=== PATIENT | female | born 1980 | race Caucasian/White ===

== ENCOUNTER → 2018-07-12 | Emergency (ER) | payer MEDICARE ==
[~2018-07-12] VITALS: Ht 157.5 cm; Wt 105.7 kg
[~2018-07-12] MED LIST: ARIPIPRAZOLE20 MG PO; CAMRESE 0.15-01 EACH PO; LEVOTHYROXINE25 MCG PO; LITHIUM CARBON600 MG PO; METFORMIN HCL500 MG PO; PRAZOSIN HCL1 MG PO
--- NOTE | 2018-07-13 00:56 | EKG ---
[facility] [address] [facility] [place] [address] Signed Normal sinus rhythm Abnormal QRS-T angle, consider primary T wave abnormality Abnormal ECG No previous ECGs available Confirmed by LAURIE HAILE MD ([id number]) on 07/13/2018 12:55:53 AM Electronically Signed By: LAURIE HAILE MD 07/13/18 0056 PATIENT NAME: CEMERIN Electrocardiogram DATE OF : 76 PHYSICIAN: LAURIE HAILE MD REPORT #: [id number] REPORT IS CONFIDENTIAL AND NOT TO BE RELEASED WITHOUT AUTHORIZATION
== END ==
LOC: ED 12:11
DX: Z00.8 Encounter for other general examination (principal); Z79.899 Other long term (current) drug therapy; Z79.84 Long term (current) use of oral hypoglycemic drugs; F31.9 Bipolar disorder, unspecified
CPT/HCPCS: 36415; 80053; 80176; 80178; 81001; 84443; 84703; 85025; 93005; 93010; 99283-25; G0480

== ENCOUNTER 2019-06-25 10:38 | Emergency (ER) | payer OTHER ==
[~2019-06-25] VITALS: Ht 157.5 cm; Wt 105.7 kg
--- OUTSIDE RECORDS SUMMARY | ~2019-06-25 | XMS | Clinical Summary ---
Demographics + + + | Address | [address] | | | [place] [address] | + + + | Home Phone | | + + + | Preferred Language | Unknown | + + + | Marital Status | Single | + + + | Shinto Affiliation | 1013 | + + + | Race | Unknown | + + + | Ethnic Group | Unknown | + + + Author + + + | Author | [facility] (Historical as of | | | 02-17-19) | + + + | Organization | [facility] (Historical as of | | | 02-17-19) | + + + | Address | Unknown | + + + | Phone | Unavailable | + + + Support + + + + + | Name | Relationship | Address | Phone | + + + + + | Jan Hines | ECON | [address] | | | | | [place] | | | | | [place] | | | | | [address] | | + + + + + Care Team Providers + +------+ + | Care Ict Support And Test Engineers Name | Role | Phone | + +------+ + | Eleuterio Huitron MD | PP | | + +------+ + Allergies No Known Allergies Current Medications + + +-------+---------+------+------+-------+ | Prescription | Sig. | Disp. | Refills | Star | End | Statu | | | | | | t | Date | s | | | | | | Date | | | + + +-------+---------+------+------+-------+ | cloNIDine | Take 0.1 mg by mouth | | | | | Activ | | (CATAPRES) 0.1 MG | 2 (two) times | | | | | e | | tablet | daily. | | | | | | + + +-------+---------+------+------+-------+ | prazosin | Take 2 mg by mouth | | | | | Activ | | (MINIPRESS) 2 MG | nightly. | | | | | e | | capsule | | | | | | | + + +-------+---------+------+------+-------+ | buPROPion | Take 300 mg by mouth | | | | | Activ | | (WELLBUTRIN XL) 300 | every morning. | | | | | e | | MG 24 hr tablet | | | | | | | + + +-------+---------+------+------+-------+ | topiramate | Take 50 mg by mouth | | | | | Activ | | (TOPAMAX) 50 MG | 2 (two) times daily. | | | | | e | | tablet | | | | | | | + + +-------+---------+------+------+-------+ | gabapentin | Take 300 mg by mouth | | | | | Activ | | (NEURONTIN) 300 MG | 3 (three) times | | | | | e | | capsuleIndications: | daily. Indications: | | | | | | | Aggressive Behavior, | Aggressive Behavior, | | | | | | | Agitation | Agitation | | | | | | + + +-------+---------+------+------+-------+ | | Take 15 mg by mouth | | | | | Activ | | amphetamine-dextroam | every morning. | | | | | e | | phetamine (ADDERALL | | | | | | | | XR) 15 MG 24 hr | | | | | | | | capsule | | | | | | | + + +-------+---------+------+------+-------+ Active Problems Not on file Social History + +-------+ +--------+------+ | Tobacco Use | Types | Packs/Day | Years | Date | | | | | Used | | + +-------+ +--------+------+ | Never Assessed | | | | | + +-------+ +--------+------+ + + + | Sex Assigned at | Date Recorded | | | | + + + | Not on file | | + + + Last Filed Vital Signs + + + + | Vital Sign | Reading | Time Taken | + + + + | Blood Pressure | 105/60 | 10/08/2015 10:04 PM PDT | + + + + | Pulse | 70 | 10/08/2015 10:04 PM PDT | + + + + | Temperature | 36.8 C (98.2 F) | 10/08/2015 5:21 PM PDT | + + + + | Respiratory Rate | 16 | 10/08/2015 10:04 PM PDT | + + + + | Oxygen Saturation | 98% | 10/08/2015 10:04 PM PDT | + + + + | Inhaled Oxygen | - | - | | Concentration | | | + + + + | Weight | 93.4 kg (205 lb 14.6 | 10/08/2015 5:21 PM PDT | | | oz) | | + + + + | Height | - | - | + + + + | Body Mass Index | - | - | + + + + Plan of Treatment Not on file Results Not on filefrom Last 3 Months Insurance + +--------+ +------+-------+---------+ | Payer | Benefi | Subscriber | Type | Phone | Address | | | t Plan | ID | | | | | | / | | | | | | | Group | | | | | + +--------+ +------+-------+---------+ | [employer] | [employer]DS | [id number] | | | | | | HEALTH | | | | | | | PLAN | | | | | + +--------+ +------+-------+---------+ + +--------+ +--------+ + + | Guarantor Name | Accoun | Relation to | Date | Phone | Billing Address | | | t Type | Patient | of | | | | | | | | | | + +--------+ +--------+ + + | ERIN PRIEST | Person | Self [birth year] Home: | [address] | | | al/Fam | | 1979 | [phone] | [place] | | | [place] | | | [phone] | [phone] | + +--------+ +--------+ + +"
--- OUTSIDE RECORDS SUMMARY | ~2019-06-25 | XMS | Clinical Summary ---
Demographics + + + | Address | [address] | | | [place] [address] | + + + | Home Phone | | + + + | Preferred Language | Unknown | + + + | Marital Status | Single | + + + | Hinduism Affiliation | 1013 | + + + | Race | Unknown | + + + | Ethnic Group | Unknown | + + + Author + + + | Author | [facility] (Historical as of | | | 02-17-19) | + + + | Organization | [facility] (Historical as of | | | 02-17-19) [...] [place] | | | | | [id number] | | + + + + + Care Team Providers + +------+ + | Care Lens Matcher Name | Role | Phone | + [...] | [employer] | ODS | [id number] | | | | | | HEALTH [...] | [birth year] | Home: | [address] | | | al/Fam | | 1979 | [phone] | [place] | | | [place] | | | [phone] | [phone] | + +--------+ +--------+ + +"
--- OUTSIDE RECORDS SUMMARY | 2019-06-25 10:40 | XMS ---
PreManage Notification: ERIN PRIEST Security Airline Hostess Events No recent Security Events currently on file [facility] There are no care providers on record at this time. [facility] has no Care Guidelines for this patient. Lisa VISIT COUNT (12 MO.) 2 CO[facility] TOTAL 2 NOTE: Visits indicate total known visits. 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
--- NOTE | 2019-06-26 07:14 | EKG ---
[facility] [address] [facility] [place] [address] Signed Normal sinus rhythm Normal ECG When compared with ECG of 12-JUL-2018 16:12, T wave inversion no longer evident in Inferior leads Confirmed by SHANICE RICHARDSON MD ([id number]) on 06/26/2019 7:14:46 AM Electronically Signed By: SHANICE RICHARDSON MD 06/26/19 0714 PATIENT NAME: PRIESTERIN Davis Electrocardiogram DATE OF : 76 PHYSICIAN: SHANICE RICHARDSON MD REPORT #: [id number] REPORT IS CONFIDENTIAL AND NOT TO BE RELEASED WITHOUT AUTHORIZATION
== END 2019-06-25 23:40 | disposition home or self-care (01) ==
LOC: ED 10:38
DX: T42.4X2A Poisoning by benzodiazepines, intentional self-harm, initial encounter (principal); F31.9 Bipolar disorder, unspecified; F17.200 Nicotine dependence, unspecified, uncomplicated; Z79.899 Other long term (current) drug therapy
CPT/HCPCS: 80053; 80176; 81001; 84443; 84703; 85025; 93005; 93010; 96360; 96361; 99284-25; G0480; J7030

== ENCOUNTER 2020-07-28 12:19 | Emergency (ER) | payer OTHER ==
[~2020-07-28] VITALS: Ht 157.5 cm; Wt 113.4 kg
--- OUTSIDE RECORDS SUMMARY | 2020-07-28 12:22 | XMS ---
PreManage Notification: ERIN PRIEST Security Custodial Services Manager Events No recent Security Events currently on file CRITERIA MET - [facility] - Has Care Guidelines CARE PROVIDERS JOEL HOOVER Nurse Practitioner: Family 06/26/2019-Current PHONE: [phone] Guidelines Source: [facility] Guidelines Date: 06/29/2019 Care Coordination: Mental health services are being provided by [facility].\T\nbsp; Please contact [facility] with mental health concerns.\T\nbsp; [place]: \T\nbsp; [place]: [phone]. Care History Medical/Surgical 06/26/2019 [facility] - Patient is currently established with [facility]. If patient is seen in the ED during business hours. Please contact CHWs at [facility]. Care Recommendation: If this patient has had 5 or more Emergency Department visits in the last 12 months.\T\nbsp; Patient will require education on the scope and purpose of the ED as an acute care provider not a Primary Care Provider and should not be utilized for chronic conditions.\T\nbsp; These are guidelines and the provider should exercise clinical judgment when providing care. 06/26/2019 [facility] Patient has appt. scheduled at [facility] on 07/06/2019. E.D. VISIT COUNT (12 MO.) 1 [facility] Hunt TOTAL 1 NOTE: Visits indicate total known visits. ED/UCC VISIT TRACKING (12 MO.) 07/28/2020 12:20 [facility] [place] TYPE: Emergency COMPLAINT: - MED CLEARANCE INPATIENT VISIT TRACKING (12 MO.) No inpatient visits to display in this time frame [id number]
[2020-07-28] MEDS ORDERED: OXCARBAZEPINE600 MG PO (13:00)
[2020-07-28] MEDS ORDERED: LEVOTHYROXINE25 MC1 PO (13:00)
[2020-07-28] MEDS ORDERED: GLUCOPHAGE500 MG PO (13:01)
[2020-07-28] MEDS ORDERED: KLONOPIN1 MG PO (13:01)
[2020-07-28] MEDS ORDERED: SIMVASTATIN10 MG (13:02)
--- NOTE | 2020-07-29 12:08 | EKG ---
[facility] [address] [place], [place] [address] Signed Normal sinus rhythm Normal ECG When compared with ECG of 25-JUN-2019 11:16, No significant change was found Confirmed by LAURIE HAILE MD ([id number]) on 07/29/2020 12:07:47 PM Electronically Signed By: LAURIE HAILE MD 07/29/20 1208 PATIENT NAME: CEMERIN Electrocardiogram DATE OF : 76 PHYSICIAN: LAURIE HAILE MD REPORT #: [id number] REPORT IS CONFIDENTIAL AND NOT TO BE RELEASED WITHOUT AUTHORIZATION
== END 2020-07-28 19:59 | disposition home or self-care (01) ==
LOC: ED 12:19
DX: F31.9 Bipolar disorder, unspecified (principal); R45.851 Suicidal ideations; R73.03 Prediabetes; Z79.899 Other long term (current) drug therapy; Z79.84 Long term (current) use of oral hypoglycemic drugs
CPT/HCPCS: 80053; 80176; 81001; 84443; 84703; 85025; 93005; 93010; 99285-25; C9803; U0003

== ENCOUNTER 2021-05-25 15:17 | Emergency (ER) | payer MEDICARE ==
[~2021-05-25] VITALS: Ht 157.5 cm; Wt 117.9 kg
[~2021-05-25 15:17] MED LIST changes: +GLUCOPHAGE500 MG PO; +KLONOPIN1 MG PO; +LEVOTHYROXINE25 MC1 PO; +OXCARBAZEPINE600 MG PO; +SIMVASTATIN10 MG
--- NOTE | 2021-05-26 13:37 | EKG ---
[facility] [address] [facility] [place] [address] Signed Normal sinus rhythm Normal ECG When compared with ECG of 28-JUL-2020 16:06, No significant change was found Confirmed by LAURIE HAILE MD ([id number]) on 05/26/2021 1:37:10 PM Electronically Signed By: LAURIE HAILE MD 05/26/21 1337 PATIENT NAME: PRIESTERIN Davis Electrocardiogram DATE OF : [birth year] PHYSICIAN: LAURIE HAILE MD REPORT #: [id number] REPORT IS CONFIDENTIAL AND NOT TO BE RELEASED WITHOUT AUTHORIZATION
== END 2021-05-26 12:19 ==
LOC: ED 15:17
DX: E87.6 Hypokalemia (principal); Z20.822 Contact with and (suspected) exposure to COVID-19; E03.9 Hypothyroidism, unspecified; Z79.899 Other long term (current) drug therapy; Z79.84 Long term (current) use of oral hypoglycemic drugs
CPT/HCPCS: 80053; 81001; 84443; 84703; 85025; 93005; 93010; 99285-25; C9803; G0480; U0003

== ENCOUNTER 2022-02-15 13:15 | Emergency (ER) | payer MEDICARE ==
[~2022-02-15] VITALS: Ht 157.5 cm; Wt 110.1 kg
[2022-02-15] MEDS ORDERED: LAMOTRIGINE200 MG PO (13:51)
[2022-02-15] MEDS ORDERED: PRILOSEC OTC20 MG PO (15:38)
--- NOTE | 2022-02-16 07:29 | EKG ---
[facility] [address] [facility] [place], [place] [address] Signed Normal sinus rhythm Normal ECG Confirmed by SHANICE RICHARDSON MD ([id number]) on 02/16/2022 7:29:33 AM Electronically Signed By: SHANICE RICHARDSON MD 02/16/22 0729 PATIENT NAME: ERIN PRIEST Electrocardiogram DATE OF : [birth year] PHYSICIAN: SHANICE RICHARDSON MD REPORT #: [id number] REPORT IS CONFIDENTIAL AND NOT TO BE RELEASED WITHOUT AUTHORIZATION
== END 2022-02-15 15:45 | disposition home or self-care (01) ==
LOC: ED 13:15
DX: R07.9 Chest pain, unspecified (principal); E03.9 Hypothyroidism, unspecified; E78.5 Hyperlipidemia, unspecified; Z79.899 Other long term (current) drug therapy; Z79.84 Long term (current) use of oral hypoglycemic drugs
CPT/HCPCS: 36415; 71045; 80053; 83735; 84484; 85025; 85379; 93005; 93010; 99285-25; A9270

== ENCOUNTER → 2022-04-27 | Emergency (ER) | payer OTHER, MEDICARE, MEDICAID ==
[~2022-04-27] VITALS: Ht 157.5 cm; Wt 110.0 kg
[~2022-04-27] MED LIST changes: +CYMBALTA20 MG PO; +LAMOTRIGINE200 MG PO; +PRILOSEC OTC20 MG PO
--- NOTE | 2022-04-28 17:53 | EKG ---
[facility] [address] [place], [place] [address] Signed Normal sinus rhythm Normal ECG When compared with ECG of 15-FEB-2022 13:15, No significant change was found Confirmed by SHANICE RICHARDSON MD ([id number]) on 04/28/2022 5:53:30 PM Electronically Signed By: SHANICE RICHARDSON MD 04/28/22 175 PATIENT NAME: ERIN PRIEST Electrocardiogram DATE OF : [birth year] PHYSICIAN: SHANICE RICHARDSON MD REPORT #: [id number] REPORT IS CONFIDENTIAL AND NOT TO BE RELEASED WITHOUT AUTHORIZATION
== END ==
LOC: ED 19:52
DX: R45.851 Suicidal ideations (principal); E78.5 Hyperlipidemia, unspecified; Z79.890 Hormone replacement therapy; Z79.899 Other long term (current) drug therapy; Z20.822 Contact with and (suspected) exposure to COVID-19
CPT/HCPCS: 36415; 80053; 81001; 84443; 85025; 87502; C9803; G0480; U0003

== ENCOUNTER 2022-11-29 09:37 | Emergency (ER) | payer OTHER, MEDICARE, MEDICAID ==
[~2022-11-29] VITALS: Ht 157.5 cm; Wt 118.4 kg
[2022-11-29] MEDS ORDERED: TRIAMCINOLONE A15 G3 TOP (10:38)
[2022-11-29 10:50] VITALS: BP 150/84
== END 2022-11-29 10:50 | disposition home or self-care (01) ==
LOC: ED 09:37
DX: K12.0 Recurrent oral aphthae (principal); E11.9 Type 2 diabetes mellitus without complications; Z79.899 Other long term (current) drug therapy; Z79.890 Hormone replacement therapy; Z79.84 Long term (current) use of oral hypoglycemic drugs
CPT/HCPCS: 99282

== ENCOUNTER 2023-08-05 12:50 | Emergency (ER) | payer OTHER, MEDICARE ==
[~2023-08-05] VITALS: Ht 157.5 cm; Wt 108.5 kg
[~2023-08-05 12:50] MED LIST changes: +TRIAMCINOLONE A15 G3 TOP
[2023-08-05 14:09] VITALS: BP 14/78
== END 2023-08-05 14:10 | disposition home or self-care (01) ==
LOC: ED 12:50
DX: S61.012A Laceration without foreign body of left thumb without damage to nail, initial encounter (principal); F31.9 Bipolar disorder, unspecified; E78.5 Hyperlipidemia, unspecified; F43.10 Post-traumatic stress disorder, unspecified; E03.9 Hypothyroidism, unspecified; E28.2 Polycystic ovarian syndrome; W26.0XXA Contact with knife, initial encounter; Y93.G1 Activity, food preparation and clean up; Z79.84 Long term (current) use of oral hypoglycemic drugs; Z79.890 Hormone replacement therapy; Z79.899 Other long term (current) drug therapy
CPT/HCPCS: 99282

== ENCOUNTER 2023-10-28 02:11 | Emergency (ER) | payer OTHER, MEDICARE ==
[~2023-10-28] VITALS: Ht 157.5 cm; Wt 89.0 kg
[~2023-10-28 02:11] MED LIST changes: +CEFDINIR300 MG PO; +DIFLUCAN200 MG PO; +VALACYCLOVIR1000 MG PO
[2023-10-28] MEDS ORDERED: FLUTICASONE PROPIONATE 50 MCG BTL NAS ONE (02:30)
[2023-10-28 03:11] LABS: INFLUENZA B NAA NEGATIVE (NEGATIVE); RESPIRATORY SYNCYTIAL VIR NAA NEGATIVE (NEGATIVE)
[2023-10-28 03:30] VITALS: BP 138/85
== END 2023-10-28 03:32 | disposition home or self-care (01) ==
LOC: ED 02:11
PROVIDERS: Internal Medicine
DX: H68.011 Acute Eustachian salpingitis, right ear (principal); J02.8 Acute pharyngitis due to other specified organisms; E03.9 Hypothyroidism, unspecified; Z91.040 Latex allergy status; Z91.09 Other allergy status, other than to drugs and biological substances; Z79.84 Long term (current) use of oral hypoglycemic drugs; Z79.890 Hormone replacement therapy; Z79.899 Other long term (current) drug therapy; Z11.52 Encounter for screening for COVID-19
CPT/HCPCS: 87502; 87651; 99283; U0002

== ENCOUNTER 2023-11-30 11:38 | Emergency (ER) | payer OTHER, MEDICARE ==
[~2023-11-30] VITALS: Ht 157.5 cm; Wt 99.0 kg
[2023-11-30 12:44] LABS: BASOPHILS 0.7 % (0-2); HEMATOCRIT 37.2 % (35.0-50.0); HEMOGLOBIN 11.9 g/dL (12.0-18.0); LYMPHOCYTES 26.8 % (24-44); MCH 24.1 (27-36); MCV 75.2 fl (81-99); MONOCYTES 5.9 % (0-12); NEUTROPHILS 64.6 % (39-80); PLATELET COUNT 374 K/uL (140-440); RBC 4.95 M/ul (4.3-5.7)
[2023-11-30 13:00] LABS: ALBUMIN 3.2 g/dL (3.4-5.0); ALBUMIN/GLOBULIN RATIO 0.73 (1.1-2.4); ANION GAP 14.9 (7-21); BILIRUBIN, TOTAL 0.3 ng/dL (0.2-1.0); BUN/CREATININE RATIO 12.94 (6.0-28.6); CALCIUM 8.5 mg/dL (8.5-10.1); CREATININE, SERUM 0.85 mg/dL (0.55-1.02); POTASSIUM 3.9 mmol/L (3.5-5.1); PROTEIN, TOTAL 7.6 g/dL (6.4-8.2)
[2023-11-30 13:44] LABS: BILIRUBIN, URINE NEGATIVE (negative); BLOOD/HGB, URINE TRACE-L (Negative); KETONE, URINE NEGATIVE (Negative); LEUK ESTERASE, URINE NEGATIVE (negative); NITRITE, URINE NEGATIVE (negative); PH, URINE 5.5 (5-7)
[2023-11-30 13:56] LABS: EPITHELIAL CELLS, URINE SQUAMOUS 1+ /lpf (0-1+); RED BLOOD CELLS, URINE 0-1 /hpf (0-5); REFLEX CULTURE, URINE No (No)
[2023-11-30 13:57] LABS: CASTS, URINE HYALINE 1+ \\lpf
[2023-11-30 17:26] VITALS: BP 118/80
== END 2023-11-30 17:26 | disposition home or self-care (01) ==
LOC: ED 11:38
PROVIDERS: Emergency Medicine
DX: R10.32 Left lower quadrant pain (principal); R11.2 Nausea with vomiting, unspecified; F31.9 Bipolar disorder, unspecified; E28.2 Polycystic ovarian syndrome; E78.5 Hyperlipidemia, unspecified; F43.10 Post-traumatic stress disorder, unspecified; E03.9 Hypothyroidism, unspecified; Z91.048 Other nonmedicinal substance allergy status; Z91.040 Latex allergy status; Z79.890 Hormone replacement therapy; Z79.84 Long term (current) use of oral hypoglycemic drugs; Z79.899 Other long term (current) drug therapy
CPT/HCPCS: 36415; 74177; 80053; 81001; 83690; 84703; 85025; 99284-25; Q9967

== ENCOUNTER 2024-04-29 12:27 | Emergency (ER) | payer OTHER ==
[~2024-04-29] VITALS: Ht 157.5 cm; Wt 97.7 kg
[2024-04-29] MEDS ORDERED: TETRACAINE HCL 0.5% 4 ML BTL OS ONE (14:45)
[2024-04-29] MEDS ORDERED: FLUORESCEIN SOD 1 EA STRP OS ONE (14:45)
[2024-04-29] MEDS ORDERED: ERYTHROMYCIN1 GM OP (15:35)
[2024-04-29] MEDS ORDERED: DIPHTH,PERTUSS(ACELL),TET VAC 0.5 ML SYRINGE IM ONE (15:45)
[2024-04-29 15:51] VITALS: BP 129/78
== END 2024-04-29 15:52 | disposition home or self-care (01) ==
LOC: ED 12:27
DX: S05.02XA Injury of conjunctiva and corneal abrasion without foreign body, left eye, initial encounter (principal); R73.03 Prediabetes; E78.5 Hyperlipidemia, unspecified; E03.9 Hypothyroidism, unspecified; E28.2 Polycystic ovarian syndrome; Z91.048 Other nonmedicinal substance allergy status; Z91.040 Latex allergy status; Z79.84 Long term (current) use of oral hypoglycemic drugs; Z79.890 Hormone replacement therapy; Z79.899 Other long term (current) drug therapy; W44.8XXA Other foreign body entering into or through a natural orifice, initial encounter
CPT/HCPCS: 90471; 90715; 99283-25

== ENCOUNTER 2024-06-07 01:27 | Emergency (ER) | payer MEDICARE, OTHER ==
[~2024-06-07] VITALS: Ht 157.5 cm; Wt 115.0 kg
[~2024-06-07 01:27] MED LIST changes: +ERYTHROMYCIN1 GM OP
[2024-06-07] MEDS ORDERED: LORazepam 2 MG/ML VIAL IM ONE (01:30)
[2024-06-07] MEDS ORDERED: diphenhydrAMINE HCL 50 MG/ML VIAL IM ONE (01:30)
[2024-06-07] MEDS ORDERED: HALOPERIDOL LACTATE 5 MG/ML VIAL IM ONE (01:30)
[2024-06-07 02:36] LABS: BASOPHILS 0.5 % (0-2); EOSINOPHILS 1.1 % (0-6); HEMATOCRIT 32.3 % (35.0-50.0); HEMOGLOBIN 10.7 g/dL (12.0-18.0); LYMPHOCYTES 17.2 % (24-44); MCH 24.7 (27-36); MCHC 33.2 g/dl (30-36); MCV 74.3 fl (81-99); MONOCYTES 6.5 % (0-12); NEUTROPHILS 74.7 % (39-80); PLATELET COUNT 328 K/uL (140-440); RBC 4.35 M/ul (4.3-5.7); RDW 15.1 (10.5-15.0)
[2024-06-07 03:03] LABS: ACETAMINOPHEN 0 ug/mL (10-30); ALBUMIN 3.4 g/dL (3.4-5.0); ALBUMIN/GLOBULIN RATIO 0.87 (1.1-2.4); ALCOHOL, MEDICAL <3 ng/dL (<3); ALKALINE PHOSPHATASE 90 U/L (46-116); ALT (SGPT) 10 U/L (14-59); ANION GAP 14.1 (7-21); AST (SGOT) 23 U/L (15-37); BILIRUBIN, TOTAL 0.5 ng/dL (0.2-1.0); CALCIUM 8.5 mg/dL (8.5-10.1); CARBON DIOXIDE 25 mmol/L (21-32); CHLORIDE 104 mmol/L (98-107); GLOMERULAR FILTRATION RATE,EST 92 mL/min (>60); POTASSIUM 3.1 mmol/L (3.5-5.1); PROTEIN, TOTAL 7.3 g/dL (6.4-8.2); SALICYLATE 0.6 mg/dL (2.8-20.0); TSH, 3RD GENERATION 1.654 uIU/mL (0.358-3.740); UREA NITROGEN 12 mg/dL (7-18)
[2024-06-07 03:06] LABS: BILIRUBIN, URINE NEGATIVE (negative); BLOOD/HGB, URINE NEGATIVE (Negative); KETONE, URINE NEGATIVE (Negative); LEUK ESTERASE, URINE NEGATIVE (negative); NITRITE, URINE NEGATIVE (negative); PH, URINE 5.5 (5-7)
[2024-06-07 03:21] LABS: AMPHETAMINES, URINE NEGATIVE (NEGATIVE); BARBITURATES, URINE NEGATIVE (NEGATIVE); BENZODIAZEPINE, URINE NEGATIVE (NEGATIVE); BUPRENORPHINE, URINE NEGATIVE (NEGATIVE); CANNABINOID, URINE POSITIVE (NEGATIVE); COCAINE, URINE NEGATIVE (NEGATIVE); ECSTASY, URINE NEGATIVE (NEGATIVE); FENTANYL, URINE NEGATIVE (NEGATIVE); METHADONE, URINE NEGATIVE (NEGATIVE); OPIATES, URINE NEGATIVE (NEGATIVE); OXYCODONE, URINE NEGATIVE (NEGATIVE); PHENCYCLIDINE, URINE NEGATIVE (NEGATIVE)
[2024-06-07] MEDS ORDERED: OLANZapine 10 MG TABDIS PO ONE (14:15)
[2024-06-07] MEDS ORDERED: LORazepam 1 MG TAB PO ONE (17:45)
[2024-06-08] MEDS ORDERED: LORazepam 1 MG TAB PO ONE (11:30)
[2024-06-08] MEDS ORDERED: OLANZapine 10 MG TABDIS PO ONE (15:45)
[2024-06-08] MEDS ORDERED: OLANZapine 10 MG TABDIS PO PRN (17:45)
[2024-06-08] MEDS ORDERED: OLANZapine 10 MG TABDIS PO SCH (21:00)
[2024-06-08] MEDS ORDERED: MENTHOL/CETYLPYRD CL 1 LOZ LOZENGE PO ONE (22:45)
[2024-06-09] MEDS ORDERED: METFORMIN HCL1000 M1 PO (12:07)
[2024-06-09] MEDS ORDERED: ABILIFY10 MG PO (12:08)
[2024-06-09] MEDS ORDERED: PARLODEL2.5 MG PO (12:09)
[2024-06-09] MEDS ORDERED: TRAZODONE HCL50 MG PO (12:10)
[2024-06-09] MEDS ORDERED: TOPIRAMATE ER25 M1 PO (12:10)
--- NOTE | 2024-06-09 19:38 | EKG ---
[facility] [address] [facility] [place] [address] Signed Normal sinus rhythm Normal ECG When compared with ECG of 28-AUG-2022 20:28, No significant change was found Confirmed by Aquilino Olmos MD ([id number]) on 06/09/2024 7:37:49 PM Electronically Signed By: AQUILINO OLMOS MD 06/09/241937 PATIENT NAME: CEMERIN JARRETT Electrocardiogram DATE OF : 76 PHYSICIAN: AQUILINO OLMOS MD REPORT #: [id number] REPORT IS CONFIDENTIAL AND NOT TO BE RELEASED WITHOUT AUTHORIZATION
[2024-06-09] MEDS ORDERED: TRAZODONE HCL 50 MG TAB PO SCH (21:00)
[2024-06-09] MEDS ORDERED: TOPIRAMATE 25 MG TAB PO SCH (21:00)
[2024-06-10] MEDS ORDERED: LEVOTHYROXINE SODIUM 25 MCG TAB PO SCH (07:00)
[2024-06-10 07:35] VITALS: BP 148/87
[2024-06-10] MEDS ORDERED: DULOXETINE HCL 60 MG CAP PO SCH (09:00)
[2024-06-10] MEDS ORDERED: metFORMIN HCL 500 MG TABCR PO SCH (09:00)
[2024-06-10] MEDS ORDERED: ARIPiprazole 10 MG TAB PO SCH (09:00)
== END 2024-06-10 07:12 ==
LOC: ED 01:27
PROVIDERS: Family Medicine
DX: F31.9 Bipolar disorder, unspecified (principal); F43.10 Post-traumatic stress disorder, unspecified; E03.9 Hypothyroidism, unspecified; Z79.899 Other long term (current) drug therapy; Z79.84 Long term (current) use of oral hypoglycemic drugs; Z91.040 Latex allergy status; Z91.018 Allergy to other foods
CPT/HCPCS: 36415; 80053; 80307; 81003; 84443; 84703; 85025; 96372; 99285-25; A9270; A9270-GY; G0480; J1200; J1630; J2060; U0002

== ENCOUNTER 2024-09-15 15:58 | Emergency (ER) | payer OTHER, MEDICARE ==
[~2024-09-15] VITALS: Ht 157.5 cm; Wt 100.3 kg
[~2024-09-15 15:58] MED LIST changes: +ABILIFY10 MG PO; +METFORMIN HCL1000 M1 PO; +PARLODEL2.5 MG PO; +TOPIRAMATE ER25 M1 PO; +TRAZODONE HCL50 MG PO
[2024-09-15] MEDS ORDERED: OLANZapine 10 MG TABDIS PO ONE (16:15)
[2024-09-15] MEDS ORDERED: LORazepam 1 MG TAB PO ONE (16:15)
[2024-09-15 16:27] LABS: BILIRUBIN, URINE NEGATIVE (negative); BLOOD/HGB, URINE NEGATIVE (Negative); KETONE, URINE NEGATIVE (Negative); LEUK ESTERASE, URINE NEGATIVE (negative); NITRITE, URINE NEGATIVE (negative)
[2024-09-15 16:41] LABS: AMPHETAMINES, URINE NEGATIVE (NEGATIVE); BARBITURATES, URINE NEGATIVE (NEGATIVE); BENZODIAZEPINE, URINE NEGATIVE (NEGATIVE); BUPRENORPHINE, URINE NEGATIVE (NEGATIVE); CANNABINOID, URINE NEGATIVE (NEGATIVE); COCAINE, URINE NEGATIVE (NEGATIVE); ECSTASY, URINE NEGATIVE (NEGATIVE); FENTANYL, URINE NEGATIVE (NEGATIVE); METHADONE, URINE NEGATIVE (NEGATIVE); OPIATES, URINE NEGATIVE (NEGATIVE); OXYCODONE, URINE NEGATIVE (NEGATIVE); PHENCYCLIDINE, URINE NEGATIVE (NEGATIVE)
[2024-09-15 16:41] LABS: BASOPHILS 0.4 % (0-2); EOSINOPHILS 1.2 % (0-6); HEMATOCRIT 35.3 % (35.0-50.0); HEMOGLOBIN 11.6 g/dL (12.0-18.0); LYMPHOCYTES 22.8 % (24-44); MCH 24.2 (27-36); MCHC 32.9 g/dl (30-36); MCV 73.6 fl (81-99); MONOCYTES 6.4 % (0-12); NEUTROPHILS 69.2 % (39-80); PLATELET COUNT 355 K/uL (140-440); RDW 15.9 (10.5-15.0)
[2024-09-15 17:04] LABS: ACETAMINOPHEN 0 ug/mL (10-30); ALBUMIN 3.5 g/dL (3.4-5.0); ALBUMIN/GLOBULIN RATIO 0.88 (1.1-2.4); ALCOHOL, MEDICAL <3 ng/dL (<3); ALKALINE PHOSPHATASE 85 U/L (46-116); ALT (SGPT) 16 U/L (14-59); ANION GAP 14.4 (7-21); AST (SGOT) 9 U/L (15-37); BILIRUBIN, TOTAL 0.2 mg/dL (0.2-1.0); BUN/CREATININE RATIO 9.23 (6.0-28.6); CALCIUM 8.9 mg/dL (8.5-10.1); CARBON DIOXIDE 27 mmol/L (21-32); CHLORIDE 103 mmol/L (98-107); CREATININE, SERUM 0.65 mg/dL (0.55-1.02); GLOMERULAR FILTRATION RATE,EST 110 mL/min (>60); POTASSIUM 3.4 mmol/L (3.5-5.1); PROTEIN, TOTAL 7.5 g/dL (6.4-8.2); SALICYLATE 1.3 mg/dL (2.8-20.0); TSH, 3RD GENERATION 0.981 uIU/mL (0.358-3.740); UREA NITROGEN 6 mg/dL (7-18)
[2024-09-15] MEDS ORDERED: LOSARTAN POTASSIUM 50 MG TAB PO ONE (20:15)
[2024-09-15] MEDS ORDERED: TRAZODONE HCL 100 MG TAB PO SCH (21:02)
[2024-09-15] MEDS ORDERED: TOPIRAMATE 25 MG TAB PO SCH (21:02)
[2024-09-16] MEDS ORDERED: LEVOTHYROXINE SODIUM 25 MCG TAB PO SCH (07:00)
[2024-09-16] MEDS ORDERED: metFORMIN HCL 500 MG TABCR PO SCH (09:00)
[2024-09-16] MEDS ORDERED: ARIPiprazole 10 MG TAB PO SCH (09:00)
[2024-09-16] MEDS ORDERED: DULOXETINE HCL 60 MG CAP PO SCH (09:00)
[2024-09-16] MEDS ORDERED: LORazepam 1 MG TAB PO PRN (16:15)
[2024-09-16] MEDS ORDERED: LOSARTAN POTASSIUM 50 MG TAB PO SCH (21:00)
[2024-09-17 10:31] VITALS: BP 141/91
== END 2024-09-17 10:31 | disposition home or self-care (01) ==
LOC: ED 15:58
PROVIDERS: Emergency Medicine
DX: R45.851 Suicidal ideations (principal); F31.9 Bipolar disorder, unspecified; R73.03 Prediabetes; E78.5 Hyperlipidemia, unspecified; E03.9 Hypothyroidism, unspecified; Z91.048 Other nonmedicinal substance allergy status; Z91.040 Latex allergy status; Z79.890 Hormone replacement therapy; Z79.84 Long term (current) use of oral hypoglycemic drugs; Z79.899 Other long term (current) drug therapy
CPT/HCPCS: 36415; 80053; 80307; 81003; 84443; 84703; 85025; 99285; A9270; A9270-GY; G0480

== ENCOUNTER 2024-11-05 07:05 | Emergency (ER) | payer OTHER, MEDICARE ==
[~2024-11-05] VITALS: Ht 157.5 cm; Wt 101.7 kg
[2024-11-05 07:43] LABS: BASOPHILS 0.5 % (0-2); EOSINOPHILS 0.6 % (0-6); HEMATOCRIT 35.8 % (35.0-50.0); HEMOGLOBIN 11.8 g/dL (12.0-18.0); LYMPHOCYTES 15.2 % (24-44); MCH 23.8 (27-36); MONOCYTES 5.4 % (0-12); NEUTROPHILS 78.3 % (39-80); PLATELET COUNT 351 K/uL (140-440); RBC 4.97 M/ul (4.3-5.7); RDW 15.8 (10.5-15.0)
[2024-11-05] MEDS ORDERED: LORazepam 1 MG TAB PO ONE (07:45)
[2024-11-05] MEDS ORDERED: OLANZapine 10 MG TAB PO ONE (07:45)
[2024-11-05 07:47] LABS: BILIRUBIN, URINE NEGATIVE (negative); BLOOD/HGB, URINE LARGE (Negative); KETONE, URINE NEGATIVE (Negative); LEUK ESTERASE, URINE NEGATIVE (negative); NITRITE, URINE NEGATIVE (negative)
[2024-11-05 07:51] LABS: BACTERIA, URINE RARE /hpf (negative); CASTS, URINE NONE SEEN \\lpf; CRYSTALS, URINE NONE SEEN (0-1+); EPITHELIAL CELLS, URINE SQUAMOUS 3+ /lpf (0-1+); WHITE BLOOD CELLS, URINE 0-1 /HPF (0-5)
[2024-11-05 07:52] LABS: COLLECTION TYPE, URINE CLEAN CATCH; REFLEX CULTURE, URINE No (No)
[2024-11-05 08:08] LABS: ACETAMINOPHEN 0 ug/mL (10-30); ALBUMIN 3.3 g/dL (3.4-5.0); ALBUMIN/GLOBULIN RATIO 0.77 (1.1-2.4); ALCOHOL, MEDICAL <3 ng/dL (<3); ALKALINE PHOSPHATASE 98 U/L (46-116); ALT (SGPT) 20 U/L (14-59); ANION GAP 12.6 (7-21); AST (SGOT) 14 U/L (15-37); BILIRUBIN, TOTAL 0.4 mg/dL (0.2-1.0); BUN/CREATININE RATIO 9.72 (6.0-28.6); CALCIUM 8.8 mg/dL (8.5-10.1); CARBON DIOXIDE 27 mmol/L (21-32); CHLORIDE 101 mmol/L (98-107); CREATININE, SERUM 0.72 mg/dL (0.55-1.02); GLOMERULAR FILTRATION RATE,EST 104 mL/min (>60); POTASSIUM 3.6 mmol/L (3.5-5.1); PROTEIN, TOTAL 7.6 g/dL (6.4-8.2); SALICYLATE 0.8 mg/dL (2.8-20.0); TSH, 3RD GENERATION 1.244 uIU/mL (0.358-3.740); UREA NITROGEN 7 mg/dL (7-18)
[2024-11-05 08:20] LABS: AMPHETAMINES, URINE NEGATIVE (NEGATIVE); BARBITURATES, URINE NEGATIVE (NEGATIVE); BENZODIAZEPINE, URINE NEGATIVE (NEGATIVE); BUPRENORPHINE, URINE NEGATIVE (NEGATIVE); CANNABINOID, URINE NEGATIVE (NEGATIVE); COCAINE, URINE NEGATIVE (NEGATIVE); ECSTASY, URINE NEGATIVE (NEGATIVE); FENTANYL, URINE NEGATIVE (NEGATIVE); METHADONE, URINE NEGATIVE (NEGATIVE); OPIATES, URINE NEGATIVE (NEGATIVE); OXYCODONE, URINE NEGATIVE (NEGATIVE); PHENCYCLIDINE, URINE NEGATIVE (NEGATIVE)
[2024-11-05] MEDS ORDERED: VITAMIN D325 MC2 PO (09:09)
[2024-11-05] MEDS ORDERED: VITAMIN B COMP1 EACH PO (09:10)
[2024-11-06 07:28] VITALS: BP 149/90
== END 2024-11-06 07:28 ==
LOC: ED 07:05
PROVIDERS: Emergency Medicine
DX: R45.851 Suicidal ideations (principal); F31.9 Bipolar disorder, unspecified; F43.10 Post-traumatic stress disorder, unspecified; E78.5 Hyperlipidemia, unspecified; Z91.040 Latex allergy status
CPT/HCPCS: 36415; 80053; 80307; 81001; 84443; 84703; 85025; 99285; A9270; A9270-GY; G0480

== ENCOUNTER 2025-03-10 14:46 | Emergency (ER) | payer OTHER, MEDICARE ==
[~2025-03-10] VITALS: Ht 157.5 cm; Wt 97.0 kg
[~2025-03-10 14:46] MED LIST changes: +VITAMIN B COMP1 EACH PO; +VITAMIN D325 MC2 PO
[2025-03-10 14:55] LABS: BLOOD/HGB, URINE LARGE (Negative); KETONE, URINE SMALL (Negative); LEUK ESTERASE, URINE NEGATIVE (negative); NITRITE, URINE NEGATIVE (negative)
[2025-03-10 15:01] LABS: BACTERIA, URINE 1+ /hpf (negative); CASTS, URINE NONE SEEN \\lpf; CRYSTALS, URINE NONE SEEN (0-1+); EPITHELIAL CELLS, URINE SQUAMOUS 2+ /lpf (0-1+); REFLEX CULTURE, URINE No (No)
[2025-03-10 15:04] LABS: BASOPHILS 0.5 % (0.1-1.2); EOSINOPHILS 1.3 % (0.7-5.8); LYMPHOCYTES 18.7 % (19.3-51.7); MCH 24.8 PG (25.6-32.2); MCHC 31.8 g/dL (32.2-35.5); MCV 77.9 fL (79.4-94.8); MONOCYTES 5.9 % (4.7-12.5); NEUTROPHILS 73.4 % (34.0-71.1); RBC 5.21 M/uL (3.93-5.22)
[2025-03-10 15:16] LABS: AMPHETAMINES, URINE POSITIVE (NEGATIVE); BARBITURATES, URINE NEGATIVE (NEGATIVE); BENZODIAZEPINE, URINE NEGATIVE (NEGATIVE); CANNABINOID, URINE NEGATIVE (NEGATIVE); COCAINE, URINE NEGATIVE (NEGATIVE); ECSTASY, URINE NEGATIVE (NEGATIVE); FENTANYL, URINE NEGATIVE (NEGATIVE); METHADONE, URINE NEGATIVE (NEGATIVE); OPIATES, URINE NEGATIVE (NEGATIVE); OXYCODONE, URINE NEGATIVE (NEGATIVE); PHENCYCLIDINE, URINE NEGATIVE (NEGATIVE)
[2025-03-10 15:28] LABS: ALCOHOL, MEDICAL <3 ng/dL (<3); ALT (SGPT) 20 U/L (14-59); AST (SGOT) 19 U/L (15-37); GLOMERULAR FILTRATION RATE,EST 91 mL/min (>60); PROTEIN, TOTAL 8.3 g/dL (6.4-8.2); TSH, 3RD GENERATION 1.222 uIU/mL (0.358-3.740); UREA NITROGEN 8 mg/dL (7-18)
[2025-03-10] MEDS ORDERED: LORazepam 1 MG TAB PO ONE (21:15)
[2025-03-11 11:11] LABS: CORONAVIRUS COVID-19 AG NEGATIVE (NEGATIVE)
[2025-03-12 11:16] VITALS: BP 133/84
== END 2025-03-12 11:16 ==
LOC: ED 14:46
PROVIDERS: Emergency Medicine
DX: R45.851 Suicidal ideations (principal); F31.9 Bipolar disorder, unspecified; F43.10 Post-traumatic stress disorder, unspecified; E78.5 Hyperlipidemia, unspecified; E03.9 Hypothyroidism, unspecified; Z79.899 Other long term (current) drug therapy; Z91.040 Latex allergy status; Z88.8 Allergy status to other drugs, medicaments and biological substances
CPT/HCPCS: 36415; 80053; 80178; 80307; 81001; 84443; 84703; 85025; 99285; A9270-GY; G0480